=== PATIENT | female | born 1975 | race Caucasian/White ===

== ENCOUNTER 2017-12-29 16:03 | Emergency (ER) | payer MEDICAID ==
[2017-12-29 16:09] VITALS: BP 161/97; Ht 152.4 cm
== END 2017-12-29 17:44 | disposition home or self-care (01) ==
LOC: ED 16:03
DX: Z76.0 Encounter for issue of repeat prescription (principal); I50.9 Heart failure, unspecified; K74.60 Unspecified cirrhosis of liver; R60.0 Localized edema